=== PATIENT | male | born 1950 | race Caucasian/White ===

== ENCOUNTER 2022-12-27 09:09 | Emergency (ER) | payer SELFPAY ==
[2022-12-27 09:10] VITALS: BP 175/89; PULSE 68; RESP 18; TEMP 37; O2SAT 98; BMI 22.4
[2022-12-27 09:25] VITALS: BP 175/89; PULSE 64; O2SAT 96
[2022-12-27 09:30] VITALS: BP 144/93; PULSE 70; O2SAT 98
--- NOTE | 2022-12-27 09:36 | PC.NURSE ---
Pt placed in Hibiclens soak. Pt c/o pain, however tolerating.
--- NOTE | 2022-12-27 09:51 | PC.NURSE ---
Hibiclens completed; dressing applied. LUE elevated with pillow. Pt declines warm blanket at this time.
[2022-12-27 09:52] VITALS: BMI 22.4
--- NOTE | 2022-12-27 09:53 | XR_ITS ---
FINAL REPORT CLINICAL HISTORY: hand injury FINDINGS: LEFT HAND: 3 views of the left hand were obtained. There is a fracture of the 4th distal phalanx with apparent soft tissue injury in this region. There is a probable nondisplaced fracture of the 5th middle phalanx. There is a small defect at the tip of the tuft of the 5th distal phalanx of uncertain age. There is a fracture of the 3rd middle phalanx. There is deformity of the 2nd middle phalanx of uncertain age. Mild degenerative changes are seen. IMPRESSION: Multiple fractures as above. Reviewed, Interpreted and Dictated by Rashaun Luciano III, MD Transcribed by Belen Colindres Authenticated and [facility]
--- NOTE | 2022-12-27 10:04 | HMH.EDGENADL ---
Discharge Plan Disposition Chief Complaint: Wound/Laceration Referrals Follow up/Referrals: Liss Woodard [Primary Care Provider] - See instructions Activity Restrictions/Add. Instructions Additional Instructions/Restrictions: At this time was felt you are safe to be transferred. Please immediately present to [facility] to be evaluated by hand surgery team. Clinical Impressions Clinical Impression: Laceration, Finger, open wounds with tendon injury Discharge ED Provider: Kaveh Arizmendi General Adult HPI General Chief complaint: Wound/Laceration Stated complaint: AO@home 12/27 LT hand lesion Time Seen by Provider: 12/27/22 10:04 Mode of Arrival: Ambulatory Source of Information: Patient Limitations: No Limitations Description of Symptoms (Recalled from ER Triage Doc. by RN): c/o left 4 fingers with laceration after accidentaly placing his hand on a saw at home. States his gave him something for pain but unsure what it is. History of Present Illness HPI narrative: Patient is a 72-year-old male with no pertinent past medical history, right-handed who presents to the emergency department for evaluation of traumatic injury sustained to his left hand in a saw accident. Onset was acute, 1 hour prior to arrival. Significant trauma over his volar hand caused him to present here for evaluation. No other traumatic complaints at this time. Related Data Allergies Allergy/AdvReac Type Severity Reaction Status Date / Time No Known Allergies Allergy Verified 12/27/22 09:53 [facility] Disclaimer: The information contained in this section may have been updated after the patient was seen, as this information can be updated by other users. Social History Smoking Status: Never smoker alcohol intake: never current occupational status: employed Travel in the last 8 weeks: None ROS Obtained: Yes Systems reviewed as appropriate & no additional complaints except as documented Physical Exam General General appearance: alert and in no apparent distress Head Head exam: atraumatic and normocephalic Eye Eye exam: Present PERRL and EOMI ENT ENT exam: Present mucous membranes moist Neck Neck exam: Present normal inspection Chest Chest inspection: Present normal inspection and symmetric chest wall rise Respiratory Respiratory exam: Absent respiratory distress Cardiovascular Cardiovascular exam: Present regular rate and normal rhythm Abdominal Exam Abdominal exam: Present soft; Absent tenderness Extremities Exam Extremities exam: Present other (Complex laceration with tenderness involvement over the volar aspect of fingers 2 through 4 with nailbed involvement over the small finger.) Neurological Exam Neurological exam: Present alert and oriented X3 Psychiatric Psychiatric exam: Present normal affect Skin Skin exam: Present warm and dry Medical Decision Making Jb Inquiry Pt receiving controlled substance: No Vital Signs: 12/27/22 09:10 12/27/22 09:25 12/27/22 09:30 Temperature 98.6 F Temperature Source Oral Pulse Rate 64 70 Pulse Rate [Left Radial] 68 Respiratory Rate 18 Blood Pressure 175/89 H 144/93 H Blood Pressure [Right Arm] 175/89 H Blood Pressure Mean 105 110 Blood Pressure Mean [Right Arm] 117 Blood Pressure Source [Right Arm] Automatic Cuff Blood Pressure Position [Right Arm] Sitting 02 Sat by Pulse Oximetry 98 96 98 Oxygen Delivery Method Room Air Orders (Tests/Meds): ED MEDICATIONS Discontinued Medications Generic Name Dose Route Start Last Admin Trade Name Freq PRN Reason Stop Dose Admin Cefazolin Sodium 2 gm 12/27/22 10:52 Cefazolin 1gm Vial IM 12/27/22 10:53 ONCE ONE Tetanus/Diphtheria Toxoids 0.5 ml 12/27/22 10:15 Tetanus-Diphth Toxoid, Adult 0.5ml Syr IM 12/27/22 10:16 .ONCE ONE ORDERS Category Date Time Status Hand XR left minimum 3 views [XR hand LT min 3V] Stat Exams 12/27/22
--- NOTE | 2022-12-27 10:46 | PC.NURSE ---
Radiology notified to share PACs with [facility]s and requested imaging disc
--- NOTE | 2022-12-27 10:48 | PC.NURSE ---
Spoke with [id number] regarding an updated. Patient provided permission to discuss care/treatment.
--- NOTE | 2022-12-27 11:05 | PC.NURSE ---
calling [facility] to speak with er md for transfer
--- NOTE | 2022-12-27 11:10 | PC.NURSE ---
Dr. Arizmendi speaking with Dr. Yusuf at this time
--- NOTE | 2022-12-27 11:18 | PC.NURSE ---
Report called to MIL Rodriguez at [facility].
[2022-12-27 12:02] VITALS: BP 169/96; PULSE 58; O2SAT 99
[2022-12-27 12:10] VITALS: BP 169/96; PULSE 58; RESP 18; TEMP 37; O2SAT 99
== END 2022-12-27 12:11 | disposition short-term general hospital (02) ==
PROVIDERS: Emergency Provider Emergency Medicine; PCP Nurse Practitioner Family
DX: S62.635B Displaced fracture of distal phalanx of left ring finger, initial encounter for open fracture (principal); W29.8XXA Contact with other powered hand tools and household machinery, initial encounter; Z23 Encounter for immunization
CPT/HCPCS: 73130; 90471; 90714; 96372; 99285